=== PATIENT | female | born 1995 | race Caucasian/White ===

== ENCOUNTER → 2021-10-27 | Outpatient (CLI) | payer BC | END | disposition home or self-care (01) | LOC: LAB SHORT 16:40 → LAB 16:40 | DX: R30.0 Dysuria (principal) | CPT/HCPCS: 87086 ==

== ENCOUNTER → 2022-03-01 | Outpatient (CLI) | payer BC | LOC: LAB 14:30 → LAB SHORT 14:30 | DX: Z34.03 Encounter for supervision of normal first pregnancy, third trimester (principal); Z3A.36 36 weeks gestation of pregnancy | CPT/HCPCS: 87081; 87150 ==

== ENCOUNTER 2022-03-28 11:03 | Inpatient (IN) | payer BC ==
[~2022-03-28] VITALS: Ht 160 cm; Wt 96.3 kg
[2022-03-28 12:12] LABS: BASOPHILS ABSOLUTE AUTO 0.07 K/mm3 (0.00-0.23); BASOPHILS PERCENT AUTO 0 % (0-2); EOSINOPHILS ABSOLUTE AUTO 0.04 K/mm3 (0.00-0.68); EOSINOPHILS PERCENT AUTO 0 % (0-6); Hematocrit 34.4 % (33.0-51.0); Hemoglobin 11.8 g/dL (11.5-16.0); IMMATURE GRAN ABSOLUTE AUTO 0.23 K/mm3 (0.00-0.10); IMMATURE GRAN PERCENT AUTO 1 % (0-1); LYMPHOCYTES ABSOLUTE AUTO 2.07 K/mm3 (0.84-5.20); LYMPHOCYTES PERCENT AUTO 12 % (21-46); MONOCYTES ABSOLUTE AUTO 0.91 K/mm3 (0.16-1.47); MONOCYTES PERCENT AUTO 5 % (4-13); Mean Corpuscular HGB 30.5 pg (26.0-34.0); Mean Corpuscular HGB Conc 34.3 g/dL (31.5-36.5); Mean Corpuscular Volume 89 fL (80-100); Mean Platelet Volume 12.2 fL (9.1-12.4); NEUTROPHILS ABSOLUTE AUTO 13.77 K/mm3 (1.96-9.15); NEUTROPHILS PERCENT AUTO 81 % (41-73); Platelet Count 241 K/mm3 (150-400); RDW Coefficient Variation 13.7 % (11.7-14.2); RDW Standard Deviation 44.6 fL (35.1-46.3); Red Blood Cell Count 3.87 M/mm3 (3.80-5.20); White Blood Cell Count 17.09 K/mm3 (4.00-11.30)
--- NOTE | 2022-03-29 04:53 | NUR ---
03/29/22 0456 Donny Daniels PT CAME TO OR WITH EPIDURAL AND ISAAC CATH IN PLACE. SEE DR BROWNING'S NOTES FOR ANTIBIOTICS GIVEN. CORD BLOOD SENT WITH FBP MENDEL GIBBS. CORD SEGMENT SENT WITH RT DIXON. PLACENTA WELL CULTURE SWAB WALKED TO LAB BY THIS RN.
[2022-03-29 04:54] LABS: PCO2 Cord - Arterial 63.7 mmHg (40-50); PO2 Cord - Arterial < 16 mmHg (16-20); pH Cord - Arterial 7.21 (7.28-7.35)
[2022-03-29 04:55] LABS: PCO2 Cord - Venous 41.4 mmHg (40-50); PO2 Cord - Venous 21.6 mmHg (28-32); pH Umbilical Cord - Venous 7.36 (7.26-7.35)
[2022-03-30 05:46] LABS: BASOPHILS ABSOLUTE AUTO 0.07 K/mm3 (0.00-0.23); BASOPHILS PERCENT AUTO 0 % (0-2); EOSINOPHILS ABSOLUTE AUTO 0.14 K/mm3 (0.00-0.68); EOSINOPHILS PERCENT AUTO 1 % (0-6); Hematocrit 27.5 % (33.0-51.0); Hemoglobin 9.2 g/dL (11.5-16.0); IMMATURE GRAN ABSOLUTE AUTO 0.34 K/mm3 (0.00-0.10); IMMATURE GRAN PERCENT AUTO 2 % (0-1); LYMPHOCYTES ABSOLUTE AUTO 3.48 K/mm3 (0.84-5.20); LYMPHOCYTES PERCENT AUTO 16 % (21-46); MONOCYTES ABSOLUTE AUTO 1.62 K/mm3 (0.16-1.47); MONOCYTES PERCENT AUTO 8 % (4-13); Mean Corpuscular HGB 30.6 pg (26.0-34.0); Mean Corpuscular HGB Conc 33.5 g/dL (31.5-36.5); Mean Corpuscular Volume 91 fL (80-100); NEUTROPHILS ABSOLUTE AUTO 15.69 K/mm3 (1.96-9.15); NEUTROPHILS PERCENT AUTO 74 % (41-73); Platelet Count 191 K/mm3 (150-400); RDW Coefficient Variation 14.3 % (11.7-14.2); RDW Standard Deviation 48.1 fL (35.1-46.3); Red Blood Cell Count 3.01 M/mm3 (3.80-5.20); White Blood Cell Count 21.34 K/mm3 (4.00-11.30)
--- NOTE | 2022-03-30 10:59 | NUR ---
03/30/22 0900 agree with assessment of EPWENDIN
[2022-03-31 05:44] LABS: Hematocrit 29.6 % (33.0-51.0); Hemoglobin 9.8 g/dL (11.5-16.0); Mean Corpuscular HGB 30.2 pg (26.0-34.0); Mean Corpuscular HGB Conc 33.1 g/dL (31.5-36.5); Mean Corpuscular Volume 91 fL (80-100); Mean Platelet Volume 12.1 fL (9.1-12.4); Platelet Count 253 K/mm3 (150-400); RDW Coefficient Variation 14.2 % (11.7-14.2); RDW Standard Deviation 47.6 fL (35.1-46.3); Red Blood Cell Count 3.24 M/mm3 (3.80-5.20); White Blood Cell Count 20.19 K/mm3 (4.00-11.30)
[2022-03-31 06:15] LABS: BAND PERCENT MAN 2 % (0-8); BASOPHILS PERCENT MAN 0 % (0-2); EOSINOPHILS PERCENT MAN 4 % (0-6); LYMPHOCYTES ABSOLUTE MAN 5.04 K/mm3 (0.84-5.20); LYMPHOCYTES PERCENT MAN 25 % (21-46); MONOCYTES ABSOLUTE MAN 1.21 K/mm3 (0.16-1.47); MONOCYTES PERCENT MAN 6 % (4-13); MYELOCYTE PERCENT MAN 1 % (0-0); NEUTROPHILS ABSOLUTE MAN 12.92 K/mm3 (1.96-9.15); SEG NEUTROPHILS PERCENT MAN 62 % (41-73); TOTAL CELLS COUNTED 100
[2022-03-31] MEDS ORDERED: Percocet 5-3251 EACH PO (11:43)
[2022-03-31] MEDS ORDERED: IBU800 M1 PO (11:44)
[2022-03-31] MEDS ORDERED: AMOCLA500 PO (11:47)
--- NOTE | 2022-03-31 12:49 | NUR ---
PRINTED DISCHARGE INSTRUCTIONS AND REVIEWED WITH PATIENT AND . ANSWERED ADDITIONAL QUESTIONS AND CONCERNS. ID BANDS MATCHED WITH , , AND VERIFICATION FORM. DISCHARGE TO HOME TO CARE OF . VSS
== END 2022-03-31 12:50 | disposition home or self-care (01) | DRG 788 ==
LOC: OBS 11:03 → BC 11:05 → OBS 11:35 → BC 11:37
PROVIDERS: ADMIT Obstetrics & Gynecology
PROC: 10D00Z1 Extraction of Products of Conception, Low, Open Approach (ICD-10-PCS; principal; 2022-03-29 03:45)
DX: O64.0XX0 Obstructed labor due to incomplete rotation of fetal head, not applicable or unspecified (principal); Z67.10 Type A blood, Rh positive; Z37.0 Single live birth
CPT/HCPCS: 36415; 51702; 82803; 85025; 86850; 86900; 86901; 86923; 87070; 87075; 87076; 87185; 87205; 88307; A9270; J0456; J0690; J0694; J1885; J2001; J2370; J2543; J2590; J2765; J3010; J7050; J7120